=== PATIENT | female | born 1985 | race Two or more races ===

== ENCOUNTER 2016-10-16 08:40 | Emergency (ER) | payer MEDICAID ==
[~2016-10-16] VITALS: Ht 154.9 cm; Wt 95.7 kg
[~2016-10-16 08:40] MED LIST: FLUO-125; HYDR12.56
[2016-10-16 09:27] LABS: Urine Bilirubin Negative (Negative); Urine Blood Negative /uL (Negative); Urine Color Yellow (Yellow); Urine Glucose Normal (Normal); Urine Ketone Negative (Negative); Urine Mucus FEW (None Seen); Urine Nitrite Negative (Negative); Urine RBC 1 /hpf (0 - 4); Urine Squamous Epithelial Cell FEW /hpf (<5); Urine Urobilinogen Normal (Negative)
[2016-10-16 09:27] LABS: Basophils # (auto) 0 uL; Basophils % (auto) 0.4 % (0.0-2.0); Eosinophils # (auto) 0 uL; Eosinophils % (auto) 0.6 % (0.0-7.0); Hematocrit 42.3 % (36.0-46.0); Hemoglobin 14.1 g/dL (12.2-16.2); Lymphocytes # (auto) 2.3 uL; Lymphocytes % (auto) 35.7 % (10.0-50.0); Mean Corpuscular Hemoglobin 29.1 pg (28.0-32.0); Mean Corpuscular Hgb Conc. 33.5 g/dL (32.0-36.0); Mean Corpuscular Volume 86.8 fL (80.0-100.0); Mean Platelet Volume 8.1 fL (7.4-10.4); Monocytes # (auto) 0.4 uL; Monocytes % (auto) 6.2 % (0.0-12.0); Neutrophils # (auto) 3.6 uL; Neutrophils % (auto) 57.1 % (37.0-80.0); Platelet Count (auto) 276 10^3/uL (140-450); Red Cell Distribution Width 13.5 % (11.6-16.0); White Blood Cell 6.3 10^3/uL (4.4-10.8)
[2016-10-16 10:01] LABS: Albumin 3.5 g/dL (3.4-5.0); Alkaline Phosphatase 67 U/L (45-117); Anion Gap 8 (5-15); Aspartate Aminotransferase 36 U/L (15-37); BUN/Creatinine Ratio 32.8; Bilirubin, Total 0.4 mg/dL (0.2-1.0); Blood Urea Nitrogen 20 mg/dL (7-18); Calcium 8.5 mg/dL (8.5-10.1); Carbon Dioxide 24 mmol/L (21-32); Chloride 109 mmol/L (98-107); GFR African American 146 mL/min; GFR Non-African American 121 mL/min; Glucose 94 mg/dL (74-106); Potassium 4.1 mmol/L (3.5-5.1); Sodium 141 mmol/L (136-145); Total Protein 7.7 g/dL (6.4-8.2)
[2016-10-16 11:07] VITALS: BP 118/58
[2016-10-16] MEDS ORDERED: NITROFURANTOIN (MONO) 100 mg CAP PO ONE (11:45)
== END 2016-10-16 12:23 | disposition home or self-care (01) ==
LOC: ER 08:40
CPT/HCPCS: 36415; 71020; 80053; 81001; 81025; 84484; 85025; 93005; 94761

== ENCOUNTER 2017-01-25 08:10 | Emergency (ER) | payer MEDICAID ==
[~2017-01-25] VITALS: Ht 154.9 cm; Wt 91.6 kg
[2017-01-25 08:36] LABS: Basophils # (auto) 0 uL; Basophils % (auto) 0.3 % (0.0-2.0); CONDITION Y; Eosinophils # (auto) 0 uL; Eosinophils % (auto) 0.4 % (0.0-7.0); Hematocrit 42.1 % (36.0-46.0); Hemoglobin 14.3 g/dL (12.2-16.2); Lymphocytes % (auto) 27.7 % (10.0-50.0); Mean Corpuscular Hemoglobin 30.1 pg (28.0-32.0); Mean Corpuscular Hgb Conc. 34.1 g/dL (32.0-36.0); Mean Corpuscular Volume 88.4 fL (80.0-100.0); Mean Platelet Volume 8.4 fL (7.4-10.4); Monocytes # (auto) 0.5 uL; Neutrophils # (auto) 4.8 uL; Neutrophils % (auto) 64.6 % (37.0-80.0); Platelet Count (auto) 267 10^3/uL (140-450); Red Cell Distribution Width 13.2 % (11.6-16.0); White Blood Cell 7.4 10^3/uL (4.4-10.8)
[2017-01-25 08:41] LABS: Urine Bilirubin Negative (Negative); Urine Blood Negative /uL (Negative); Urine Color Yellow (Yellow); Urine Glucose Normal (Normal); Urine Ketone Negative (Negative); Urine Nitrite Negative (Negative); Urine RBC 2 /hpf (0 - 4); Urine Squamous Epithelial Cell MOD /hpf (<5); Urine Urobilinogen Normal (Negative); Urine pH 6.5 (5.0-8.0)
[2017-01-25 08:54] LABS: Albumin 3.4 g/dL (3.4-5.0); BUN/Creatinine Ratio 21.7; Calcium 8.2 mg/dL (8.5-10.1)
[2017-01-25 08:57] LABS: Bilirubin, Total 0.4 mg/dL (0.2-1.0); Total Protein 7.7 g/dL (6.4-8.2)
[2017-01-25 09:16] VITALS: BP 140/89
[2017-01-25] MEDS ORDERED: ACETAMINOPHEN 325 MG TAB PO ONE (09:30)
[2017-01-25] MEDS ORDERED: ONDANSETRON ODT 4 MG TAB PO ONE (09:30)
== END 2017-01-25 11:13 | disposition home or self-care (01) ==
LOC: ER 08:11
DX: O23.41 Unspecified infection of urinary tract in pregnancy, first trimester (principal); O34.81 Maternal care for other abnormalities of pelvic organs, first trimester; N83.201 Unspecified ovarian cyst, right side; Z3A.01 Less than 8 weeks gestation of pregnancy
CPT/HCPCS: 36415; 76801; 76817; 80053; 81001; 81025; 83690; 84702; 85025; 99285; Q0162

== ENCOUNTER 2017-02-10 01:42 | Emergency (ER) | payer MEDICAID ==
[~2017-02-10] VITALS: Ht 154.9 cm; Wt 91.2 kg
[2017-02-10 03:13] VITALS: BP 104/48
[2017-02-10] MEDS ORDERED: methylPREDNISolone SOD SUCC 125 MG/2 ML VL IM ONE (03:45)
[2017-02-10] MEDS ORDERED: diphenhdrAMINE HCL 25 MG CAP PO ONE (03:45)
== END 2017-02-10 04:26 | disposition home or self-care (01) ==
LOC: ER 01:42
DX: O26.891 Other specified pregnancy related conditions, first trimester (principal); L50.0 Allergic urticaria; Z3A.10 10 weeks gestation of pregnancy
CPT/HCPCS: 96372; 99283; J2930

== ENCOUNTER 2020-01-18 05:34 | Emergency (ER) | payer MEDICAID ==
[~2020-01-18] VITALS: Ht 154.9 cm; Wt 72.6 kg
[2020-01-18] MEDS ORDERED: SODIUM CHLORIDE 0.9% 1,000 ML IVB ONE (08:13)
[2020-01-18] MEDS ORDERED: ONDANSETRON HCL 4 MG/2 ML VIAL IV ONE (08:15)
[2020-01-18] MEDS ORDERED: KETOROLAC TROMETH 30 MG/ML 1ML VIAL IV ONE (08:15)
[2020-01-18 08:33] LABS: Basophils # (auto) 0 10 ^3/uL (0-0.2); Basophils % (auto) 0.2 % (0.0-2.0); Eosinophils # (auto) 0 10 ^3/uL (0-0.8); Eosinophils % (auto) 0.3 % (0.0-7.0); Hematocrit 42.2 % (36.0-46.0); Hemoglobin 14.1 g/dL (12.2-16.2); Lymphocytes # (auto) 0.9 10 ^3/uL (0.4-5.4); Mean Corpuscular Hemoglobin 29.5 pg (28.0-32.0); Mean Corpuscular Hgb Conc. 33.4 g/dL (32.0-36.0); Mean Corpuscular Volume 88.5 fL (80.0-100.0); Monocytes # (auto) 0.3 10 ^3/uL (0-1.3); Monocytes % (auto) 3.3 % (0.0-12.0); Neutrophils # (auto) 9.1 10 ^3/uL (1.6-8.6); Neutrophils % (auto) 87.2 % (37.0-80.0); Nucleated Red Blood Cells % 0.1 %; Platelet Count (auto) 213 10^3/uL (140-450); Red Blood Cells 4.77 10^6/uL (4.0-5.20); Red Cell Distribution Width 13.7 % (11.8-14.3); White Blood Cell 10.4 10^3/uL (4.4-10.8)
[2020-01-18 08:59] LABS: Albumin 4.1 g/dL (3.4-5.0); Calcium 9.3 mg/dL (8.5-10.1); Potassium 3.6 mmol/L (3.5-5.1)
[2020-01-18 09:02] LABS: Bilirubin, Total 0.6 mg/dL (0.2-1.0); Total Protein 8.1 g/dL (6.4-8.2)
[2020-01-18 10:06] LABS: Urine Bacteria FEW /hpf (None Seen); Urine Blood 2+ /uL (Negative); Urine Mucus FEW (None Seen); Urine Specific Gravity 1.018 (1.001-1.035); Urine WBC 7 /hpf (0 - 5)
[2020-01-18 12:54] VITALS: BP 104/59
== END 2020-01-18 12:55 | disposition home or self-care (01) ==
LOC: ER 05:34
DX: N20.9 Urinary calculus, unspecified (principal); N39.0 Urinary tract infection, site not specified; R11.2 Nausea with vomiting, unspecified; Z90.49 Acquired absence of other specified parts of digestive tract; Z98.51 Tubal ligation status
CPT/HCPCS: 36415; 74176; 80053; 81001; 85025; 96361; 96374; 96375; 99284; J1885; J2405; J7030

== ENCOUNTER 2020-02-06 08:20 | Emergency (ER) | payer MEDICAID ==
[~2020-02-06] VITALS: Ht 154.9 cm; Wt 68.0 kg
[2020-02-06] MEDS ORDERED: SODIUM CHLORIDE 0.9% 1,000 ML IV ONE (09:01)
[2020-02-06] MEDS ORDERED: KETOROLAC TROMETH 30 MG/ML 1ML VIAL IV ONE (09:15)
[2020-02-06] MEDS ORDERED: MORPHINE SULFATE 4 MG/ML SYR/VIAL IV ONE (09:30)
[2020-02-06] MEDS ORDERED: ONDANSETRON HCL 4 MG/2 ML VIAL IV ONE (09:30)
[2020-02-06 09:36] LABS: Urine Bacteria MOD /hpf (None Seen); Urine Blood 2+ /uL (Negative); Urine Mucus FEW (None Seen); Urine Specific Gravity 1.021 (1.001-1.035); Urine WBC 4 /hpf (0 - 5)
[2020-02-06 10:18] LABS: Basophils # (auto) 0 10 ^3/uL (0-0.2); Basophils % (auto) 0.3 % (0.0-2.0); Eosinophils # (auto) 0 10 ^3/uL (0-0.8); Eosinophils % (auto) 0.3 % (0.0-7.0); Hematocrit 39.2 % (36.0-46.0); Lymphocytes # (auto) 0.9 10 ^3/uL (0.4-5.4); Lymphocytes % (auto) 7.6 % (10.0-50.0); Mean Corpuscular Hemoglobin 29.5 pg (28.0-32.0); Mean Corpuscular Hgb Conc. 33.3 g/dL (32.0-36.0); Mean Corpuscular Volume 88.5 fL (80.0-100.0); Monocytes # (auto) 0.4 10 ^3/uL (0-1.3); Monocytes % (auto) 3.6 % (0.0-12.0); Neutrophils # (auto) 9.9 10 ^3/uL (1.6-8.6); Neutrophils % (auto) 88.2 % (37.0-80.0); Nucleated Red Blood Cells % 0.1 %; Platelet Count (auto) 192 10^3/uL (140-450); Red Blood Cells 4.42 10^6/uL (4.0-5.20); Red Cell Distribution Width 13.5 % (11.8-14.3); White Blood Cell 11.2 10^3/uL (4.4-10.8)
[2020-02-06 10:40] LABS: Albumin 3.7 g/dL (3.4-5.0); Calcium 8.7 mg/dL (8.5-10.1)
[2020-02-06 10:43] LABS: BUN/Creatinine Ratio 30.2; Bilirubin, Total 0.5 mg/dL (0.2-1.0); Total Protein 7.3 g/dL (6.4-8.2)
[2020-02-06 10:49] LABS: Potassium 3.7 mmol/L (3.5-5.1)
[2020-02-06 11:44] VITALS: BP 101/59
== END 2020-02-06 12:44 | disposition home or self-care (01) ==
LOC: ER 08:20
DX: N20.0 Calculus of kidney (principal); N39.0 Urinary tract infection, site not specified; E86.0 Dehydration; D72.829 Elevated white blood cell count, unspecified
CPT/HCPCS: 36415; 71045; 74176; 80053; 81001; 85025; 96361; 96374; 96375; 99285; J2270; J2405

== ENCOUNTER 2022-05-27 10:23 | Emergency (ER) | payer MEDICAID ==
[~2022-05-27] VITALS: Ht 154.9 cm; Wt 68.8 kg
[2022-05-27 11:47] VITALS: BP 132/86
[2022-05-27] MEDS ORDERED: ACETAMINOPHEN/CODEINE#3 (300/30mg) TAB PO ONE (13:30)
== END 2022-05-27 14:21 | disposition home or self-care (01) ==
LOC: ER 10:23
DX: S63.602A Unspecified sprain of left thumb, initial encounter (principal); Z90.49 Acquired absence of other specified parts of digestive tract; Z98.51 Tubal ligation status; W22.8XXA Striking against or struck by other objects, initial encounter; Y93.89 Activity, other specified; Y92.89 Other specified places as the place of occurrence of the external cause; Y99.8 Other external cause status
CPT/HCPCS: 73140

== ENCOUNTER 2025-03-03 13:05 | Emergency (ER) | payer MEDICAID ==
[~2025-03-03] VITALS: Ht 154.9 cm; Wt 64.0 kg
[~2025-03-03 13:05] MED LIST changes: -HYDR12.56; +HYDR12.59
--- NOTE | 2025-03-03 13:35 | ED.PDOC ---
GI ASSESSMENT HPI Comments This is a 39 year old female presenting to the ED with chief complaint of abdominal pain. Patient reports that she has been experiencing upper abdominal burning that radiates to her back with associated nausea and vomiting since an hour ago. Patient relays that she has had previous kidney infections that feel similar to her symptoms today. Patient denies any diarrhea, fever, chills, dysuria, hematuria, or flank pain. Chief Complaint: Abdominal Pain Time Seen by MD: 13:34 Primary Care Provider: SEAN King Notes: Nurses Notes, Medications, Allergies Allergies: Coded Allergies: NO KNOWN ALLERGIES (Unverified , 02/24/12) Home Meds Reported Medications [Fluoxetine Hcl20 Mg] (Fluoxetine Hcl) 20 MG CAP No Conflict Check, MG 02/23/13 [Eykyxblracqrc09.5 Mg] (Hydrochlorothiazide) 12.5 MG CAP No Conflict Check, MG 02/23/13 Information Source: Patient Mode of Arrival: Ambulatory Timing: Hours Duration: Since onset Prehospital treatment: None Quality: Burning Vomitus: Watery Stool: Normal Severity: Moderate Recent: None Recent Hx of: None Pain Location: Epigastric Modifying Factors: Nothing Associated sign and symptoms: Nausea, Vomiting, Abdominal Pain Past Medical History PAST MEDICAL HISTORY: Denies Surgical History: BTL, Cholecystectomy, , Tubal Ligation ALPINE PATROLLER History: No Pertinent ALPINE PATROLLER History Family History Family History: Reviewed,noncontributory to illness Social History Smoker: Non-Smoker Alcohol: Denies ETOH Use Drugs: Denies Drug Use Lives In: Home Constitutional: denies: chills, diaphoresis, fatigue, fever, malaise, sweats, w eakness, others EENTM: denies: blurred vision, double vision, ear bleeding, ear discharge, ear drainage, ear pain, ear ringing, eye pain, eye redness, hearing loss, mouth pain, mouth swelling, nasal discharge, nose bleeding, nose congestion, nose pain, photophobia, tearing, throat pain, throat swelling, voice changes, others Respiratory: denies: cough, hemoptysis, orthopnea, SOB at rest, shortness of breath, SOB with excertion, stridor, wheezing, others Cardiovascular: denies: chest pain, dizzy spells, diaphoresis, Dyspnea on exertion, edema, irregular heart beat, left arm pain, lightheadedness, palpitations, PND, syncope, others Gastrointestinal: reports: abdominal pain, nausea, vomiting; denies: abdomen distended, blood streaked bowels, constipated, diarrhea, dysphagia, difficulty swallowing, hematemesis, melena, poor appetite, poor fluid intake, rectal bleed ing, rectal pain, others Genitourinary: denies: abnormal vagina bleeding, burning, dyspareunia, dysuria, flank pain, frequency, hematuria, incontinence, pain, , vagina discharge, urgency, others Neurological: denies: dizziness, fainting, headache, left sided numbness, left sided weakness, numbness, paresthesia, pre-existing deficit, right sided numbness, right sided weakness, seizure, speech problems, tingling, tremors, weakness, others Musculoskeletal: denies: back pain, gout, joint pain, joint swelling, muscle pain, muscle stiffness, neck pain, others Integumetry: denies: bruises, change in color, change in hair/nails, dryness, laceration, lesions, lumps, rash, wounds, others Allergic/Immunocompromised: denies: Difficulty Healing, Frequent Infections, Hives, Itching, others Hematologic/Lymphatic: denies: anemia, blood clots, easy bleeding, easy bruising, swollen glands, others Endocrine: denies: excessive hunger, excessive sweating, excessive thirst, excessive urination, flushing, intolerance to cold, intolerance to heat, unexplained weight gain, unexplained weight loss, others Psychiatric: denies: anxiety, bipolar disorder, depression, hopeless, panic disorder, schizophrenia, sleepless, suicidal, others All Other Systems: Reviewed and Negative Physical Exam General Appearance: Moderate Distress, Normal HEENT: Normal ENT Inspection, Pharynx Normal, TMs Normal Neck: Full Range of Motion, Non-Tender, Normal, Normal Inspection Respiratory: Chest Non-Tender, Lungs Clear, No Accessory Muscle Use, No Respiratory Distress, Normal Breath Sounds Cardiovascular: No Edema, No JVD, No Murmur, No Gallop, Normal Peripheral Pulses, Regular Rate/Rhythm Breast Exam: Deferred Gastrointestinal: Diffuse, No Organomegaly, No Pulsatile Mass, Normal Bowel Sounds, Soft Genitalia: Deferred Pelvic: Deferred Rectal: Deferred Extremities: No calf tenderness, Normal capillary refill, Normal inspection, Normal range of motion, Non-tender, No pedal edema Musculoskeletal : Apperance: Normal 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 Was a procedure done?: No GI differential Dx Differential Diagnosis: Constipation, Diverticular disease, Esophagitis, Gastritis/PUD, Gastroenteritis X-Ray, Labs, Meds, VS Vital Signs Date Time Temp Pulse Resp B/P (MAP) Pulse Ox O2 Delivery O2 Flow Rate FiO2 03/03/25 14:58 62 18 107/67 (80) 99 03/03/25 13:06 97.5 85 18 97/69 96 97.5 Lab Test 03/03/25 13:25 Range/Units White Blood Count 6.2 4.4-10.8 10^3/uL Red Blood Count 4.24 4.0-5.20 10^6/uL Hemoglobin 13.1 12.2-16.2 g/dL Hematocrit 37.9 36.0-46.0 % Mean Corpuscular Volume 89.6 80.0-100.0 fL Mean Corpuscular Hemoglobin 31.0 28.0-32.0 pg Mean Corpuscular Hemoglobin Concent 34.6 32.0-36.0 g/dL Red Cell Distribution Width 13.5 11.8-14.3 % Platelet Count 228 140-450 10^3/uL Mean Platelet Volume 8.0 6.9-10.8 fL Neutrophils (%) (Auto) 55.4 37.0-80.0 % Lymphocytes (%) (Auto) 35.9 10.0-50.0 % Monocytes (%) (Auto) 7.5 0.0-12.0 % Eosinophils (%) (Auto) 0.9 0.0-7.0 % Basophils (%) (Auto) 0.3 0.0-2.0 % Neutrophils # (Auto) 3.4 1.6-8.6 10 ^3/uL Lymphocytes # (Auto) 2.2 0.4-5.4 10 ^3/uL Monocytes # (Auto) 0.5 0-1.3 10 ^3/uL Eosinophils # (Auto) 0.1 0-0.8 10 ^3/uL Basophils # (Auto) 0 0-0.2 10 ^3/uL Nucleated Red Blood Cells 0.1 % Sodium Level 140 136-145 mmol/L Potassium Level 3.8 3.5-5.1 mmol/L Chloride Level 105 98-107 mmol/L Carbon Dioxide Level 26 20-31 mmol/L Anion Gap 9 5-15 Blood Urea Nitrogen 14 9-23 mg/dL Creatinine 0.62 0.550-1.02 mg/dL Glomerular Filtration Rate Calc 115 >90 mL/min BUN/Creatinine Ratio 22.6 H 10.0-20.0 Serum Glucose 140 H 74-106 mg/dL Calcium Level 9.1 8.7-10.4 mg/dL Current Medications Medications (Trade) Dose Ordered Sig/Dm Route Start Time Stop Time Status Last Admin Sodium Chloride 1,000 ml @ 1,000 mls/hr Q1H ONCE IV 03/03/25 13:45 03/03/25 14:44 DC 03/03/25 15:43 Ketorolac Tromethamine (Toradol Injection) 30 mg ONCE ONCE IV 03/03/25 13:45 03/03/25 13:46 DC 03/03/25 15:43 Ondansetron HCl (Zofran) 4 mg ONCE ONCE IV 03/03/25 13:45 03/03/25 13:46 DC 03/03/25 15:43 Patient alert. Complaining of abdominal pain. Vitals stable. Answering questions. Establish intravenous access. Was given fluids. Was given Toradol. Continue monitoring. Time of 1ST Reevaluation: 14:33 Reevaluation 1ST: Unchanged Patient Education/Counseling: Diagnosis, Treatment Family Education/Counseling: Diagnosis, Treatment SEPSIS Sepsis Screen Date sepsis recognized/suspect: Mar 03, 2025 Time Sepsis recognized/suspect: 1307 Recent Procedure: No On Antibiotic Therapy: No Respiratory Rate >20: No Heart Rate >90: No Temp<36 C (96.8 F) or >38.3 C: No SBP <90 or MAP <65 mmHG: No New Acute Mental Status Change: No Is the patient on CPAP, BIPAP,: No Physician Orders Urinalysis (03/03/25 13:07) Vital Signs Date Time Temp Pulse Resp B/P (MAP) Pulse Ox O2 Delivery O2 Flow Rate FiO2 03/03/25 14:58 62 18 107/67 (80) 99 03/03/25 13:06 97.5 85 18 97/69 96 97.5 Laboratory Tests Test 03/03/25 13:25 White Blood Count 6.2 10^3/uL (4.4-10.8) Medications Medications Dose Ordered Sig/Dm Route Start Time Stop Time Status Last Admin Dose Admin Ketorolac Tromethamine 30 mg ONCE ONCE IV 03/03/25 13:45 03/03/25 13:46 DC 03/03/25 15:43 Ondansetron HCl 4 mg ONCE ONCE IV 03/03/25 13:45 03/03/25 13:46 DC 03/03/25 15:43 Sodium Chloride 1,000 ml @ 1,000 mls/hr Q1H ONCE IV 03/03/25 13:45 03/03/25 14:44 DC 03/03/25 15:43 Departure 1 Departure Time of Disposition: 13:43 Impression: Primary Impression: Acute abdominal pain Disposition: ADMITTED INPATIENT Admit to: Med Surg Condition: Guarded Critical Care Note Critical Care Time?: No Stability Stability form required: No Heart Score Heart Score: Heart Score Response (Comments) Value History N/A 0 EKG N/A 0 Age N/A 0 Risk Factors N/A 0 Troponin N/A 0 Total 0 I personally scribed for EMANUEL JUAREZ MD ([email or web address]) on 03/03/25 at 13:35. Electronically submitted by Claus Win ([email or web address]). EMANUEL JUAREZ MD Mar 03, 2025 13:35
[2025-03-03 13:41] LABS: Hematocrit 37.9 % (36.0-46.0); Hemoglobin 13.1 g/dL (12.2-16.2); Mean Corpuscular Hemoglobin 31.0 pg (28.0-32.0); Mean Corpuscular Volume 89.6 fL (80.0-100.0); Nucleated Red Blood Cells % 0.1 %
[2025-03-03 13:51] LABS: Chloride 105 mmol/L (98-107); Potassium 3.8 mmol/L (3.5-5.1); Sodium 140 mmol/L (136-145)
[2025-03-03 13:52] LABS: Anion Gap 9 (5-15); Calcium 9.1 mg/dL (8.7-10.4); Carbon Dioxide 26 mmol/L (20-31)
[2025-03-03 13:57] LABS: BUN/Creatinine Ratio 22.6 (10.0-20.0); Blood Urea Nitrogen 14 mg/dL (9-23)
[2025-03-03 13:58] LABS: Glucose 140 mg/dL (74-106)
[2025-03-03] MEDS: SODIUM CHLORIDE 0.9% 1,000 ML IV ONE (15:43)
[2025-03-03] MEDS: ONDANSETRON HCL 4 MG/2 ML VIAL IV ONE (15:43)
[2025-03-03] MEDS: KETOROLAC TROMETH 30 MG/ML 1ML VIAL IV ONE (15:43)
--- NOTE | 2025-03-03 16:51 | DVH ---
COMPUTERIZED TOMOGRAPHY ABDOMEN AND PELVIS WITHOUT CONTRAST REASON FOR EXAM: stone flank pain COMPARISON: None TECHNIQUE: Spiral scans were acquired from the diaphragm to the symphysis pubis without intravenous c ontrast administration. 2-D coronal and sagittal reformatted images were provided. Radiation optimiza tion: All CT scans at this facility use at least one of these dose optimization techniques: Automated exposure control mA and/or kV adjustment per patient size (includes targeted exams where dose is mat ched to clinical indication) or iterative reconstruction. RADIATION DOSE: CTDI: 7.63 mGy DLP: 383.1 mGy-cm FINDINGS: There is minimal dependent atelectasis in the right lower lobe. The visualized lung bases are otherw ise clear. There is no pleural effusion. There is no pericardial effusion. There is a small hiatal hernia. 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 The spleen is not enlarged. The li ayad is normal in size and contour. Evaluation of the abdominal organs is suboptimal in the absence of intravenous contrast. The gallbladder is surgically absent. Unenhanced appearance of the pancreas is grossly unremarkable. The adrenal glands are normal. The kidneys are similar in size. There is no h ydronephrosis of either kidney. No renal, ureteral, or bladder calculus is identified. There are phle boliths in the pelvis. The uterus and ovaries are grossly unremarkable within the limitations of this noncontrast study. There is trace free fluid in the dependent pelvis, likely physiologic. The coloni c stool burden is small. The appendix is not seen. There is no inflammatory stranding about the cecu m to suggest acute appendicitis. There is no pathologic distention of the small bowel. There is no ab dominal aortic aneurysm. No acute osseous abnormality is identified. IMPRESSION: No renal, ureteral, or bladder calculus is identified. No hydronephrosis of either kidney. Gastric bypass anatomy. No evidence of small-bowel obstruction.
[2025-03-03] MEDS ORDERED: CEPH250C PO (17:44)
[2025-03-03 17:50] VITALS: BP 120/71; PULSE 58; RESP 18; TEMP 97.8; O2SAT 97
== END 2025-03-03 18:00 | disposition home or self-care (01) ==
LOC: ER 13:05
DX: R10.10 Upper abdominal pain, unspecified (principal); R11.2 Nausea with vomiting, unspecified; Z90.49 Acquired absence of other specified parts of digestive tract; Z98.51 Tubal ligation status; Z98.84 Bariatric surgery status
CPT/HCPCS: 36415; 74176; 80048; 85025; 96361; 96374; 96375; 99285; J1885; J2405; J7030